=== PATIENT | female | born 1995 | race Caucasian/White ===

== ENCOUNTER 2019-12-04 14:59 | Outpatient (CLI) | payer OTHER, SELFPAY ==
[2019-12-04 15:27] LABS: HGB 14.7 g/dL (11.2-15.7); MCH 29.4 pg (27.0-33.0); MCHC 32.7 % (32.0-36.0); MPV 14.5 fL (8.0-11.0); Platelet Count 120 10^3/uL (130-400); RDW 11.8 % (11.7-14.6); RDW-SD 38.5 fL; WBC 7.64 10^3/uL (4.4-10.8)
[2019-12-04 15:47] LABS: Anion Gap 11.1 mmol/L (3-11); BUN 9 mg/dL (7-18); CO2 22.9 mmol/L (21.0-32.0); Calcium 9.3 mg/dL (8.5-10.1); Chloride 106 mmol/L (98-107); Glucose 106 mg/dL (74-106); Magnesium 1.9 mg/dL (1.8-2.4); Potassium 3.5 mmol/L (3.5-5.1); Sodium 140 mmol/L (136-145); TSH (W/Ref FT4) 1.03 uIU/mL (0.36-3.74)
[2019-12-04 16:26] LABS: D-Dimer 237 ng/mlFEU (<500)
== END 2019-12-04 15:19 ==
PROVIDERS: PCP Family Medicine; Visit Provider Family Medicine
DX: R00.2 Palpitations (principal)
CPT/HCPCS: 36415; 80048; 85027; 83735; 84443; 85379

== ENCOUNTER 2019-12-16 03:47 | Outpatient (CLI) | payer OTHER, SELFPAY | END 2019-12-16 04:07 | PROVIDERS: PCP Family Medicine; Visit Provider Family Medicine | DX: R00.2 Palpitations (principal) | CPT/HCPCS: 93225 ==

== ENCOUNTER 2019-12-19 09:32 | Outpatient (CLI) | payer OTHER, SELFPAY ==
--- NOTE | 2019-12-19 11:27 | W.HOLTRPT ---
Date of service: 12/19/19 Time of Service: 11:27 Holter Monitor Report Referring Provider:: marisol tineo Indications:: palpitations Holter Monitor Note: This is a 48-hour Holter monitor reportedly performed for indications of palpitations The rhythm throughout was sinus. Average heart rate was 86. Minimum heart rate was 62 and maximum 138 There were no significant atrial or ventricular dysrhythmias Patient symptoms of palpitations corresponded to sinus tachycardia, rate 111 to 124 bpm
== END 2019-12-19 09:52 ==
PROVIDERS: PCP Family Medicine; Visit Provider Family Medicine
DX: R00.2 Palpitations (principal)
CPT/HCPCS: 93227; 93226

== ENCOUNTER 2020-01-15 13:38 | Outpatient (CLI) | payer OTHER, SELFPAY ==
--- NOTE | 2020-01-15 13:45 | RT.EKG_ITS ---
APPROVED REPORT Exam: Resting ECG Patient Location: O HR:87 bpm ECG Measurements Heart Rate 87 AXIS AZ 111 P 34 QRSd 75 QRS 57 QT 350 T 37 QTc 421 Conclusion Sinus rhythm...normal P axis, V-rate 60- 99
== END 2020-01-15 13:58 ==
PROVIDERS: PCP Family Medicine; Referring Provider Family Medicine; Visit Provider Internal Medicine Cardiovascular Disease
DX: R00.2 Palpitations (principal)
CPT/HCPCS: 93010

== ENCOUNTER → 2020-01-15 13:38 | Outpatient (BNVA) | payer OTHER, SELFPAY | PROVIDERS: PCP Family Medicine; Referring Provider Family Medicine; Visit Provider Internal Medicine Cardiovascular Disease | DX: R00.2 Palpitations (principal) | CPT/HCPCS: 99204 ==

== ENCOUNTER 2020-03-02 00:34 | Outpatient (CLI) | payer OTHER, SELFPAY ==
--- NOTE | 2020-03-02 07:27 | DI.US_ITS ---
APPROVED REPORT EXAM: Comprehensive 2D, Doppler, and color-flow Echocardiogram Patient Location: Out-Patient [employer] Operator: Megan Evans RDCS (AE) Indications: Tachycardia, Palpitations Other Information Study Quality: Good Conclusion Normal left ventricular wall thickness, chamber size and systolic function. Estimated ejection fract ion is 60 to 65%. There are no segmental wall motion abnormalities Normal right ventricular size and systolic function Both atria are normal in size There are no structural valvular abnormalities There are no hemodynamically significant valvular abnormalities Wall motion Left Ventricle The left ventricle is normal size. The left ventricular systolic function is normal. The left ventric ular ejection fraction is within the normal range. There is normal left ventricular wall thickness. T here is normal LV segmental wall motion. There is no ventricular septal defect visualized. LVEF is 60 -65%. Right Ventricle The right ventricle is normal size. The right ventricular systolic function is normal. The RVSP is 14 .4 mmHg. Atria The left atrium size is normal. The right atrium size is normal. The interatrial septum is intact wit h no evidence for an atrial septal defect. Aortic Valve The aortic valve is normal in structure. Aortic valve is trileaflet. There is no aortic valvular sten osis. No aortic regurgitation is present. Mitral Valve The mitral valve is normal in structure. No evidence of mitral valve stenosis. Trace mitral regurgita tion. Tricuspid Valve The tricuspid valve is normal in structure. There is no tricuspid valve stenosis. Trace tricuspid reg urgitation. Pulmonic Valve The pulmonary valve is normal in structure. There is no pulmonic valvular stenosis. There is trivial pulmonic valvular regurgitation. Great Vessels The aortic root is normal in size. The ascending aorta is normal in size. Aortic arch is normal in ca liber. IVC is normal in size and collapses >50% with inspiration. Pericardium There is no pericardial effusion. 2D Dimensions IVSD d PLAX 0.68 cm F: 0.6-1.0 LV Vol A2C d MOD 91.9 mL LVPW d PLAX 0.70 cm F: 0.6 - 1.0 LV Vol A4C d MOD 82.5 mL LVID d PLAX 4.76 cm F: 3.8 - 5.2 LA vol/ BSA A2C s A-L 17.4 mL/m2 LVDs 3.15 cm F: 2.2 - 3.5 LA vol/ BSA A4C s A-L 15.5 mL/m2 Ao Root d 2.42 cm F: 2.7 - 3.3 LA Vol/ BSA Biplane s A-L 17.9 mL/m2 RA Area A4C 9.20 cm2 LA Area A4C s MOD 12.52 cm2 RA Vol/ BSA A4C s A-L 11.1 mL/m2 LA Area A2C s MOD 12.19 cm2 Ao Asc Diam d 2.75 cm F: 2.3 - 3.1 LV EF A4C MOD 57.8 % LV EF Teichholz 62.0 % LV EF A2C MOD 59.0 % LVEF (Stahl's) 60.02 % F: 54 - 74 LV EF Biplane MOD 60.0 % LV Volume 72.81 mL F: 46 - 106 SV 56.06 mL LV Volume Index 40.67 mL/m2 F: 29 - 61 SV Index 31.33 mL/m2 LV Vol Biplane MOD 93.4 mL FS 33.35 % LV Diastology MV E' medial 0.145 (>0.07 m/s) E/A Ratio 2.1 LV E/e MED 6.40 (<14) MV E Vmax 0.93 (0.4-1.3 m/s) MV E' lateral 0.171 (>0.1 m/s) MV A Vmax 0.45 (0.4-1.3 m/s) LV E/e LAT 5.40 (<14) MV E/A Ratio 1.90 MV E/E' medial 6.40 MV E/E' lateral 5.44 Aortic Valve LVOT Area 2.97 cm2 AoV Area Vmax 2.31 cm2 LVOT Vmax 1.03 m/s AoV Area/ BSA (Vmax) 1.29 cm2/m2 LVOT Mean Lenny. 0.65 m/s CHELSY Mean Lenny. 2.11 cm2 LVOT Peak Grad 4.3 mmHg CHELSY Mean Lenny. Index 1.18 cm2/m2 LVOT Mean Grad 2.1 mmHg LVOT VTI 0.210 m LVOT Diam s 1.90 cm AoV Vmax 1.32 m/s Velocity Ratio 0.78 AoV Mean Lenny. 0.91 m/s AoV Peak Grad 7.0 mmHg LVOT SV 62.36 mL AoV Mean Grad 3.7 mmHg AoV VTI 0.247 m AoV Area VTI 2.52 cm2 AoV Area/ BSA (VTI) 1.41 cm/m2 Mitral Valve MV DT 186 (160-240 msec) MV PHT 54 msec MV Area PHT 4.07 cm2 Pulmonary Valve PV Vmax 1.07 (0.5-1.5 m/s) RVOT Peak Gr. 1.50 mmHg PV Peak Grad 4.6 mmHg RVOT Mean Gr. 0.85 mmHg PV Mean Grad 2.3 mmHg RVOT VTI 0.137 m PV VTI 0.214 m RVOT Vmax 0.61 m/s Tricuspid Valve TR Peak Grad 11.4 mmHg TR Vmax 1.69 m/s RA Pressure 3.00 mmHg RVSP (TR) 14.4 mmHg
== END 2020-03-02 00:54 ==
PROVIDERS: PCP Family Medicine; Visit Provider Internal Medicine Cardiovascular Disease
DX: R00.2 Palpitations (principal); R00.0 Tachycardia, unspecified
CPT/HCPCS: 93306

== ENCOUNTER 2020-03-22 14:54 | Emergency (ER) | payer OTHER, SELFPAY ==
[2020-03-22 14:58] VITALS: BP 134/80; PULSE 97; RESP 14; TEMP 36.5; O2SAT 100
[2020-03-22 15:12] LABS: Bilirubin Small (Negative); Blood Trace-intact (Negative); Glucose Negative (Negative); Ketones Trace mg/dL (Negative); Leukocyte Esterase Negative (Negative); Nitrite Negative (Negative); Specific Gravity >= 1.030 (1.005-1.025)
--- NOTE | 2020-03-22 15:12 | ED.GENADUL_ITS ---
Discharge Plan Disposition Patient Disposition: HOME Condition: Improving Discharge Details Clinical Impression: UTI (urinary tract infection) Primary Care Provider: Rosendo Keith ED Provider: Dex Chambers Home Meds and New Rx's Prescriptions: New phenazopyridine [Pyridium] 100 mg tablet 100 mg PO TID 2 Days Qty: 6 RF: 0 cephalexin 500 mg capsule 500 mg PO TID 7 Days Qty: 21 RF: 0 Continued aripiprazole [Abilify] 15 mg tablet 15 mg PO DAILY RF: 0 lorazepam 1 mg tablet 1 mg PO DAILY PRNRF: 0 medroxyprogesterone [Depo-Provera] 150 mg/mL suspension 150 mg IM Q12W Qty: 1 RF: 3 propranolol [Inderal LA] 60 mg capsule,extended release 24 hr 60 mg PO DAILY RF: 0 Medical Decision Making Pleasant 24-year-old female presents with hours of urinary frequency, urgency, mild low abdomen/pelvis and back pain. Her vital signs are stable, her exam reveals suprapubic tenderness and mild flank tenderness. Consistent with urinary tract infection; cystitis versus pyelonephritis. Given acetaminophen and Pyridium. Her urinalysis is not convincing for UTI, but she does have lower abdominal tenderness and concerning for developing peritonitis. IV placed, labs is and repeat UA obtained. Labs: White blood cell count 8, hematocrit 41, platelets 116. Chemistries reassuring, LFTs unremarkable, lipase negative. Repeat urinalysis with positive nitrites and consistent with acute UTI. CT scan of the abdomen pelvis is without acute findings. Patient improving with parenteral fluids and medications. She is given a dose of ceftriaxone I will place her on Keflex and Pyridium. She is stable and improved, appropriate for discharge to home. HPI General Mode of arrival: ambulatory . Date/Time Provider Initiated Documentation: 03/22/20 14:58 . Limitations to Documentation: no limitations . Information obtained by: patient . History of Present Illness 24 year old F presents to the emergency department with the chief complaint of Urinary urgency, lower abdomen and back discomfort, described as moderate, Quality is described as dull, and is localized to the back, abdomen and pelvis. Patient reports no radiation. Patient started experiencing this hour(s) and it has been constant. No relieving factors improve symptom(s), No exacerbating factors reported . Patient notes loss of appetite and malaise; denies fever/chills and nausea/vomiting. Patient did receive the following treatments prior to arrival, none Related Data Home Medications Medication Instructions Recorded Confirmed medroxyprogesterone 150 mg/mL 150 mg IM Q12W #1 ml 09/26/19 01/15/20 intramuscular suspension aripiprazole 15 mg tablet 15 mg PO DAILY 11/25/19 01/15/20 lorazepam 1 mg tablet 1 mg PO DAILY PRN 11/25/19 01/15/20 propranolol 60 mg capsule,24 60 mg PO DAILY 12/17/19 01/15/20 hr,extended release cephalexin 500 mg PO TID 7 Days #21 cap 03/22/20 phenazopyridine [Pyridium] 100 mg PO TID 2 Days #6 tab 03/22/20 Previous Rx's Medication Instructions Recorded medroxyprogesterone 150 mg/mL 150 mg IM Q12W #1 ml 09/26/19 intramuscular suspension cephalexin 500 mg PO TID 7 Days #21 cap 03/22/20 phenazopyridine [Pyridium] 100 mg PO TID 2 Days #6 tab 03/22/20 Allergies Allergy/AdvReac Type Severity Reaction Status Date / Time No Known Allergies Allergy Verified 02/17/20 12:48 General Stated Complaint: Urinary ELFEGO: 3 Review of Systems Narrative: No recent travel, no respiratory symptoms. No vaginal bleeding or discharge. No change in sexual partners. 6 systems reviewed and otherwise negative. PFSH Surgical History H/O wisdom tooth extraction Family History Mother Depression Thyroid disorder Maternal Grandmother Bipolar 1 disorder Social History Smoking/Tobacco Use Status: Never Smoking risk assessment performed?: Yes Alcohol Intake: current Alcohol Intake frequency: holidays/special occasions only Drug use: Never Substance use type: does not use Do you feel safe at home: Yes Do you feel safe in your relationship?: Yes Female Reproductive History Menstrual control method: progesterone injection History History 0 Para Hx # Term Pregnancies Multiple births Hx # Pregnancies Ectopic pregnancies AB induced Hx Number of Living Children AB spontaneous Exam Narrative Exam Narrative: GEN: awake, alert, oriented 3. Pleasant, well groomed, interactive. HEAD: Normocephalic, atraumatic ENT: Mucous membranes moist, External ear exam unremarkable EYES: PERRL, EOMI NECK: Full ROM, no JONATHAN, no menigismus CHEST/RESP: Nontender, clear to auscultation bilateral, no wheeze/rhonchi/rales CARDIOVASCULAR: RRR, no murmur, rub alicia. 2+ Rad pulse bilateral ABDOMEN: Soft, suprapubic tenderness, no mass. +Bowel sounds. Mild bilateral flank tenderness to percussion EXT: Full ROM, no edema, no rash Neuro: Grossly normal neurologic exam, conversant, interactive. Psych: Speech fluent, thoughts congruent, affect normal Course Vital Signs Vital signs: Vital Signs Temperature 36.5 C 03/22/20 14:58 Pulse 97 H 03/22/20 14:58 Respiratory Rate 14 03/22/20 14:58 Blood Pressure 134/80 03/22/20 14:58 Pulse Oximetry 100 03/22/20 14:58 Temperature 36.5 C 03/22/20 14:58 Temperature Source Skin 03/22/20 14:58 Pulse 97 H 03/22/20 14:58 Respiratory Rate 14 03/22/20 14:58 Blood Pressure 134/80 03/22/20 14:58 Blood Pressure Position Sitting 03/22/20 14:58 Pulse Oximetry 100 03/22/20 14:58 Oxygen Delivery Method Room Air 03/22/20 14:58 Oxygen Flow Rate 0 03/22/20 14:58 Pain Level 7 03/22/20 14:58 Lab/Test Results Lab/Test Results: POC- Test(urine) Negative
[2020-03-22 15:13] LABS: Clarity Sl Cloudy (Clear)
--- NOTE | 2020-03-22 15:15 | DI.CT_ITS ---
EXAM: CT ABDOMEN PELVIS W INDICATION: Lower abd/pelvic pain. COMPARISON: No exams were available for comparison TECHNIQUE: FINDINGS: CT examination of the abdomen and pelvis was performed with a bolus infusion of 100 cc of Omnipaque 3 50. Images obtained through the lung bases are unremarkable. The liver is unremarkable in appearance. Gallbladder and bile ducts are CT normal. Pancreas appears normal. Spleen is unremarkable in appearance. Adrenals appear normal. The kidneys are unremarkable with no evidence of hydronephrosis, nephrolithiasis, or renal mass.. Ur inary bladder unremarkable. Abdominal aorta is of normal diameter and no major vascular abnormality is seen. No abdominal wall hernia. No abdominal or pelvic adenopathy. FOUNDRY MANAGER structures appear intact. Appendix is normal. No evidence of diverticulitis or bowel obstruction. IMPRESSION: Negative CT examination of the abdomen and pelvis. No evidence of appendicitis. RADIATION DOSE DELIVERED: 725.98mGy.cm Total DLP 725.98mGy.cm Total DLP
[2020-03-22] MEDS: Phenazopyridine 100 MG TAB PO (15:17)
[2020-03-22] MEDS: Acetaminophen 500 MG TAB 1000 MG PO (15:17)
[2020-03-22 15:22] LABS: Bacteria Few HPF (Negative); Crystals Negative HPF (Negative); Epithelial Cells Many HPF (Negative)
[2020-03-22 15:23] LABS: C & S Indicated? No/Sq. Contamination; Mucus Moderate (Negative)
[2020-03-22 16:02] LABS: Abs Immature Grans 0.02 10^3/uL (0.0-0.06); Absolute Basophil Count 0.03 10^3/uL (0.0-0.2); Absolute Eosinophil Count 0.11 10^3/uL (0.0-0.7); Absolute Lymphocyte Count 2.74 10^3/uL (1.2-3.4); Absolute Monocyte Count 0.58 10^3/uL (0.1-0.8); Absolute Neutrophil Count 4.68 10^3/uL (1.2-6.7); Basophils % 0.4; Eosinophils % 1.3; HCT 41.5 % (36.0-46.0); HGB 13.9 g/dL (11.2-15.7); Immature Grans % 0.2; Lymphocytes % 33.6; MCH 30.1 pg (27.0-33.0); MCHC 33.5 % (32.0-36.0); MCV 89.8 fL (80-95); MPV 14.5 fL (8.0-11.0); Monocytes % 7.1; Neutrophils % 57.4; Nucleated RBC 0 %; Platelet Count 116 10^3/uL (130-400); RBC 4.62 10^6/uL (3.93-5.22); RDW 12.1 % (11.7-14.6); RDW-SD 39.4 fL; WBC 8.16 10^3/uL (4.4-10.8)
[2020-03-22 16:14] LABS: ALT 20 U/L (14-59); AST 10 U/L (15-37); Albumin 4.2 g/dL (3.4-5.0); Alkaline Phosphatase 67 U/L (46-116); Anion Gap 9.2 mmol/L (3-11); BUN 12 mg/dL (7-18); Bilirubin, Total 0.3 mg/dL (0.2-1.0); CO2 23.8 mmol/L (21.0-32.0); CREATININE 0.84 mg/dL (0.55-1.02); Calcium 8.7 mg/dL (8.5-10.1); Chloride 104 mmol/L (98-107); Glucose 95 mg/dL (74-106); Lipase 53 U/L (73-393); Potassium 3.7 mmol/L (3.5-5.1); Sodium 137 mmol/L (136-145); Total Protein 7.3 g/dL (6.4-8.2)
[2020-03-22] MEDS: Omnipaque 350 MG/ML 100 ML BTL IJ (16:20)
[2020-03-22] MEDS: Normal Saline 1,000 ML 1000 ML IV (16:21)
[2020-03-22] MEDS: Ketorolac 15 MG/ML VIAL IVP (16:21)
--- NOTE | 2020-03-22 16:30 | DI.VRAD_ITS ---
PROCEDURE INFORMATION: Exam: CT Abdomen And Pelvis With Contrast Exam date and time: 03/22/2020 3:29 PM Age: 24 years old Clinical indication: Abdominal pain; Localized; Patient HX: Lower abd/pelvic pain TECHNIQUE: Imaging protocol: Computed tomography of the abdomen and pelvis with intravenous contrast. COMPARISON: No relevant prior studies available. FINDINGS: Limitations: None. Liver: Normal. Gallbladder and bile ducts: Normal. Pancreas: Normal. Spleen: Normal. Adrenal glands: Normal. Kidneys and ureters: Normal. Intestine: Normal colon. Stomach and bowel: Normal stomach and small bowel. Appendix: Normal appendix. Intraperitoneal space: No ascites, pneumoperitoneum or peritoneal lesion. Vasculature: Normal. Lymph nodes: None enlarged or otherwise suspicious. Urinary bladder: Normal. Reproductive: Normal uterus and ovaries. Bones/joints: No acute fracture or suspicious osseous lesion. Soft tissues: No mass or abdominal hernia. IMPRESSION: Normal. Dictated and Authenticated by: Jeremiah Gorman MD. Ordering:CRISTIAN Kowalski MD
[2020-03-22 16:37] LABS: Bilirubin Negative (Negative); Blood Negative (Negative); Clarity Clear (Clear); Glucose Negative (Negative); Ketones Negative (Negative); Leukocyte Esterase Negative (Negative); Urobilinogen 0.2 EU/dL (Up TO 0.2); pH 6.5 (5-8)
[2020-03-22 16:49] LABS: Casts Negative LPF (Negative); Crystals Negative HPF (Negative); Epithelial Cells Few HPF (Negative); Mucus Negative (Negative); RBC 0-2 HPF (0-2)
[2020-03-22 16:56] LABS: Bacteria Negative HPF (Negative); C & S Indicated? No
[2020-03-22] MEDS: cefTRIAXone 1 GM/50 ML BAG IVPB (17:10)
== END 2020-03-22 17:34 | disposition home or self-care (01) ==
PROVIDERS: Emergency Provider Emergency Medicine; PCP Family Medicine
DX: N30.00 Acute cystitis without hematuria (principal); Z87.440 Personal history of urinary (tract) infections
CPT/HCPCS: 36415; 80053; 81025; 83690; 96361; 96365; 96375; 99285; 74177; 81003; 81015; 85025; 99284; J0696; J1885; J3490

== ENCOUNTER → 2020-04-09 12:19 | Outpatient (BNVA) | payer OTHER, SELFPAY | PROVIDERS: PCP Family Medicine; Referring Provider Family Medicine; Visit Provider Internal Medicine Cardiovascular Disease | DX: F31.89 Other bipolar disorder (principal); R00.2 Palpitations | CPT/HCPCS: 99214; 99442 ==

== ENCOUNTER 2020-05-05 15:57 | Outpatient (REF) | payer OTHER, SELFPAY ==
[2020-05-07 15:28] LABS: COVID-19 RT-PCR Result NEGATIVE (Negative)
== END 2020-05-05 16:17 ==
LOC: NCHCN 15:57
PROVIDERS: PCP Family Medicine; Visit Provider Physician Assistant
DX: Z20.822 Contact with and (suspected) exposure to COVID-19 (principal)
CPT/HCPCS: U0003

== ENCOUNTER → 2020-05-21 08:58 | Outpatient (BNVA) | payer OTHER, SELFPAY | PROVIDERS: PCP Family Medicine; Referring Provider Family Medicine; Visit Provider Internal Medicine Cardiovascular Disease | DX: R00.2 Palpitations (principal) | CPT/HCPCS: 99442; 99213 ==

== ENCOUNTER 2021-01-18 09:26 | Outpatient (REF) | payer OTHER, SELFPAY ==
--- NOTE | 2021-01-18 09:00 | PAPFT_PTH ---
PATIENT: Екатерина Luna LOC: [facility] U#:[id number] AGE/SX: 25/F ROOM: RE01/18/[address]: KIM Hinton : 1995 BED: DIS: 01/18/2021 SPEC #: [id number] RECD: 01/18/21 12:51 STATUS: RYLEY REQ #: [id number] GABRIEL: 01/18/21 09:[address]: Ranjana Andino DEPT: [facility] Cytology RECD BY: Radha Earl ENTERED: 01/18/21 12:51 SP TYPE: PAPFT OTHR DR: Rosendo Keith Tissues: 1 - CX/ENDOCX FOR PAP SMEARS Procedures: PAP THIN PREP/[facility] Screening Comments: [id number]
== END 2021-01-18 09:27 | disposition home or self-care (01) ==
LOC: LBN 09:26
PROVIDERS: PCP Family Medicine; Visit Provider Nurse Practitioner Family
DX: Z12.4 Encounter for screening for malignant neoplasm of cervix (principal); R87.610 Atypical squamous cells of undetermined significance on cytologic smear of cervix (ASC-US)
CPT/HCPCS: 88142

== ENCOUNTER 2021-02-22 10:05 | Outpatient (REF) | payer OTHER, SELFPAY ==
[2021-02-22 15:15] LABS: HCT 43.9 % (36.0-46.0); HGB 14.7 g/dL (11.2-15.7); MCH 29.5 pg (27.0-33.0); MCHC 33.5 % (32.0-36.0); Platelet Count 127 10^3/uL (130-400); RBC 4.99 10^6/uL (3.93-5.22); RDW 11.9 % (11.7-14.6); RDW-SD 38.2 fL; WBC 6.84 10^3/uL (4.4-10.8)
[2021-02-22 15:35] LABS: ALT 23 U/L (14-59); AST 12 U/L (15-37); Albumin 4.3 g/dL (3.4-5.0); Alkaline Phosphatase 74 U/L (46-116); Anion Gap 10.5 mmol/L (3-11); BUN 11 mg/dL (7-18); Bilirubin, Total 0.4 mg/dL (0.2-1.0); CO2 25.5 mmol/L (21.0-32.0); CREATININE 0.9 mg/dL (0.55-1.02); Calcium 9.3 mg/dL (8.5-10.1); Chloride 107 mmol/L (98-107); FREE T4 1.09 ng/dL (0.76-1.46); Glucose 110 mg/dL (74-106); Potassium 4.6 mmol/L (3.5-5.1); Sodium 143 mmol/L (136-145); TSH 2.55 uIU/mL (0.36-3.74); Total Protein 7.4 g/dL (6.4-8.2)
[2021-02-22 16:05] LABS: Ferritin 32 ng/mL (8-252)
== END 2021-02-22 10:06 | disposition home or self-care (01) ==
LOC: NCHCN 10:05
PROVIDERS: PCP Family Medicine; Visit Provider Physician Assistant
DX: R53.83 Other fatigue (principal)
CPT/HCPCS: 80053; 85027; 82728; 84439; 84443

== ENCOUNTER 2021-05-20 12:53 | Outpatient (CLI) | payer OTHER, SELFPAY ==
--- NOTE | 2021-05-20 | DI.RAD_ITS ---
Exam(s) XR CHEST 2V PA LATERAL EXAM: XR CHEST 2V PA LATERAL CLINICAL HISTORY: COVID 19, U07.1, PERSISTENT COUGH, FEVER TECHNIQUE: 2D digital imaging was performed of the chest. Two images were obtained. PA and lateral views were obtained. COMPARISON: No exams were available for comparison FINDINGS: MEDIASTINUM: Normal. HEART: Normal. PULMONARY VASCULATURE: Normal. LUNGS: Clear. PLEURAL SPACE: No pleural effusion or pneumothorax. BONE:Within normal limits for the patient's age. OTHER FINDINGS:Normal. IMPRESSION: No acute pulmonary findings. DATA REPOSITORY: RADIATION DOSE DELIVERED:
== END 2021-05-20 13:13 ==
PROVIDERS: PCP Family Medicine; Visit Provider Physician Assistant
DX: U07.1 COVID-19 (principal); R05.8 Other specified cough; R50.9 Fever, unspecified
CPT/HCPCS: 71046

== ENCOUNTER 2021-05-20 16:17 | Outpatient (REF) | payer OTHER, SELFPAY ==
[2021-05-20 15:29] LABS: HCT 41.5 % (36.0-46.0); HGB 13.6 g/dL (11.2-15.7); MCH 29.4 pg (27.0-33.0); MCHC 32.8 % (32.0-36.0); MCV 89.8 fL (80-95); Platelet Count 132 10^3/uL (130-400); RBC 4.62 10^6/uL (3.93-5.22); RDW 12.2 % (11.7-14.6); RDW-SD 39.7 fL
[2021-05-20 16:21] LABS: D-Dimer 291 ng/mlFEU (<500)
== END 2021-05-20 16:18 | disposition home or self-care (01) ==
LOC: NCHCN 16:17
PROVIDERS: PCP Family Medicine; Visit Provider Physician Assistant
DX: U07.1 COVID-19 (principal)
CPT/HCPCS: 85027; 85379

== ENCOUNTER 2021-11-02 03:20 | Outpatient (CLI) | payer OTHER, SELFPAY | END 2021-11-02 03:21 | disposition home or self-care (01) | LOC: LBO 03:20 | PROVIDERS: PCP Family Medicine; Visit Provider Nurse Practitioner Women's Health ==

== ENCOUNTER 2021-11-09 01:34 | Outpatient (CLI) | payer OTHER, SELFPAY | END 2021-11-09 01:35 | disposition home or self-care (01) | LOC: LBO 01:35 | PROVIDERS: PCP Family Medicine; Visit Provider Nurse Practitioner Women's Health ==

== ENCOUNTER 2023-02-02 19:36 | Outpatient (REF) | payer BC, SELFPAY ==
[2023-02-02 17:43] LABS: HCT 40.9 % (36.0-46.0); HGB 13.6 g/dL (11.2-15.7); MCH 28.9 pg (27.0-33.0); MCHC 33.3 % (32.0-36.0); MCV 87 fL (80-95); Platelet Count 128 10^3/uL (130-400); RBC 4.71 10^6/uL (3.93-5.22); RDW 12.5 % (11.7-14.6); RDW-SD 39.4 fL; WBC 7.64 10^3/uL (4.4-10.8)
[2023-02-02 17:53] LABS: ALT 137 U/L (14-59); AST 65 U/L (15-37); Alkaline Phosphatase 76 U/L (46-116); Anion Gap 11.7 mmol/L (3-11); BUN 9 mg/dL (7-18); Bilirubin, Total 0.5 mg/dL (0.2-1.0); CO2 24.3 mmol/L (21.0-32.0); CREATININE 0.9 mg/dL (0.55-1.02); Calcium 9.7 mg/dL (8.5-10.1); Chloride 103 mmol/L (98-107); Estimated GFR 90.42 (mL/min/1.73m2); Glucose 97 mg/dL (74-106); Lipase 19 U/L (16-77); Potassium 4.1 mmol/L (3.5-5.1); Sodium 139 mmol/L (136-145); Total Protein 7.4 g/dL (6.4-8.2)
== END 2023-02-02 19:37 | disposition home or self-care (01) ==
LOC: NCHCN 19:36
PROVIDERS: PCP Family Medicine; Visit Provider Physician Assistant
DX: R10.9 Unspecified abdominal pain (principal)
CPT/HCPCS: 80053; 83690; 85027

== ENCOUNTER 2023-02-13 16:40 | Outpatient (REF) | payer BC, SELFPAY ==
[2023-02-13 20:24] LABS: Abs Immature Grans 0.03 10^3/uL (0.0-0.06); Absolute Basophil Count 0.02 10^3/uL (0.0-0.2); Absolute Eosinophil Count 0.23 10^3/uL (0.0-0.7); Absolute Lymphocyte Count 2.72 10^3/uL (1.2-3.4); Absolute Monocyte Count 0.56 10^3/uL (0.1-0.8); Absolute Neutrophil Count 4.92 10^3/uL (1.2-6.7); Basophils % 0.2; Eosinophils % 2.7; HCT 41.7 % (36.0-46.0); HGB 13.7 g/dL (11.2-15.7); Immature Grans % 0.4; Lymphocytes % 32.1; MCH 28.9 pg (27.0-33.0); MCHC 32.9 % (32.0-36.0); MCV 88 fL (80-95); Monocytes % 6.6; Platelet Count 148 10^3/uL (130-400); RBC 4.74 10^6/uL (3.93-5.22); RDW 12.6 % (11.7-14.6); RDW-SD 40.5 fL; WBC 8.48 10^3/uL (4.4-10.8)
[2023-02-13 20:31] LABS: ALT 90 U/L (14-59); AST 40 U/L (15-37); Alkaline Phosphatase 81 U/L (46-116); Bilirubin, Direct 0.1 mg/dL (0.0-0.2); Bilirubin, Total 0.4 mg/dL (0.2-1.0); Total Protein 7.4 g/dL (6.4-8.2)
== END 2023-02-13 16:41 | disposition home or self-care (01) ==
LOC: NCHCN 16:40
PROVIDERS: PCP Family Medicine; Visit Provider Physician Assistant
DX: D69.6 Thrombocytopenia, unspecified (principal)
CPT/HCPCS: 80076; 85025

== ENCOUNTER 2023-02-14 13:13 | Outpatient (REF) | payer BC, SELFPAY ==
[2023-02-16 08:24] LABS: Hepatitis C Ab w Rflx HCV PCR Negative (Negative)
== END 2023-02-14 13:14 | disposition home or self-care (01) ==
LOC: NCHCN 13:13
PROVIDERS: PCP Family Medicine; Visit Provider Physician Assistant
DX: D69.6 Thrombocytopenia, unspecified (principal)
CPT/HCPCS: 86803

== ENCOUNTER 2023-03-02 16:59 | Outpatient (REF) | payer BC, SELFPAY ==
--- NOTE | 2023-03-02 14:45 | PAPFT_PTH ---
PATIENT: Екатерина Luna LOC: [facility] U#:[id number] AGE/SX: 27/F ROOM: RE03/02/[address]: Cherri Aguiar DO : 1995 BED: DIS: 03/02/2023 SPEC #: [id number] RECD: 03/02/23 17:46 STATUS: SOUShilpa REQ #: [id number] GABRIEL: 03/02/23 14:[address]: Cherir Aguiar [facility]PT[facility] Cytology RECD BY: Radha Earl ENTERED: 03/02/23 17:46 SP TYPE: PAPFT OTHR DR: Rosendo Keith Tissues: 1 - CX/ENDOCX FOR PAP SMEARS Procedures: PAP THIN PREP/[facility] Screening HPV DNA PROBE Comments: [id number] (CHLAMYDIA/GC)
[2023-03-05 14:48] LABS: Chlamydia Result Negative (Negative); GC Result Negative (Negative)
== END 2023-03-02 17:00 | disposition home or self-care (01) ==
LOC: LBN 16:59
PROVIDERS: PCP Family Medicine; Visit Provider Obstetrics & Gynecology
DX: Z11.3 Encounter for screening for infections with a predominantly sexual mode of transmission (principal); Z12.4 Encounter for screening for malignant neoplasm of cervix; Z11.51 Encounter for screening for human papillomavirus (HPV)
CPT/HCPCS: 87491; 87591; 88142; 87624

== ENCOUNTER 2023-07-07 13:16 | Emergency (ER) | payer BC, SELFPAY ==
[2023-07-07] VITALS (20 sets, daily range): BP systolic 122–158; BP diastolic 66–87; PULSE 75–96; RESP 16; TEMP 36.6; O2SAT 99–100
[2023-07-07 13:59] LABS: Abs Immature Grans 0.01 10^3/uL (0.0-0.06); Absolute Basophil Count 0.02 10^3/uL (0.0-0.2); Absolute Eosinophil Count 0.12 10^3/uL (0.0-0.7); Absolute Lymphocyte Count 2.32 10^3/uL (1.2-3.4); Absolute Monocyte Count 0.54 10^3/uL (0.1-0.8); Absolute Neutrophil Count 3.88 10^3/uL (1.2-6.7); Basophils % 0.3; Eosinophils % 1.7; HCT 45.8 % (36.0-46.0); HGB 15.3 g/dL (11.2-15.7); Immature Grans % 0.1; Lymphocytes % 33.7; MCH 29.6 pg (27.0-33.0); MCHC 33.4 % (32.0-36.0); MCV 89 fL (80-95); MPV 14.4 fL (8.0-11.0); Monocytes % 7.8; Neutrophils % 56.4; Platelet Count 120 10^3/uL (130-400); RBC 5.17 10^6/uL (3.93-5.22); RDW 12.1 % (11.7-14.6); RDW-SD 39.8 fL; WBC 6.89 10^3/uL (4.4-10.8)
[2023-07-07] MEDS: Normal Saline 1,000 ML 1000 ML IV (14:00)
--- NOTE | 2023-07-07 14:00 | DI.CT_ITS ---
Exam(s) CT ABDOMEN PELVIS W EXAM: CT ABDOMEN PELVIS W CLINICAL HISTORY: LLQ pain. TECHNIQUE: Imaging Protocol: Axial computed tomography images with coronal and sagittal reformatted images were created and reviewed CONTRAST MATERIAL: Intravenous: Omnipaque-350 100cc Oral: None COMPARISON: CT CT ABDOMEN PELVIS W from 03/22/2020 FINDINGS: VISUALIZED LUNG BASES: No nodules nor pleural effusions evident. ABDOMEN: There is no ascites. LIVER: There are no focal hepatic lesions evident. No dilated intrahepatic ducts. GALLBLADDER/BILIARY: No obvious gallbladder pathology. CBD is not dilated. PANCREAS: No evidence of pancreatic mass nor dilatation of the pancreatic duct. SPLEEN: Spleen is not enlarged. No obvious intrasplenic lesions. Splenic and portal veins are paten t. ADRENALS: There are no significant adrenal masses. KIDNEYS:No cysts evident. No solid renal masses. No calculi nor hydronephrosis.. ABDOMINAL AORTA: Abdominal aorta is not enlarged. LYMPH NODES:There is no retroperitoneal nor paraaortic adenopathy. ABDOMINAL WALL: No evidence of significant anterior abdominal wall nor inguinal hernia. GI: There is no evidence of bowel obstruction, free air, nor abscess. PELVIS: GI: No evidence of appendicitis.There is no evidence of diverticular disease in the colon. However, the descending-left colon appears collapsed in similar fashion to February 2020 with some mild circum ferential wall thickening which is possibly exaggerated because of lack of oral contrast within the l umen. Nevertheless, can not exclude an element of colitis here. This does not extend all the way do wn to the rectum. LYMPH NODES: There is no intrapelvic nor inguinal adenopathy. REPRODUCTIVE: Uterus is anteverted and appears unremarkable. Ovaries unremarkable. Follicular cyst in the right ovary noted measuring 1 cm. There are no extraovarian adnexal masses. No free fluid in the pelvis. URINARY BLADDER: No calculi nor obvious masses evident OSSEOUS: No fractures and no significant osseous lesions. IMPRESSION: 1. Subtle circumferential thickening of the wall of the left side of the colon from the splenic flexu re down to the upper sigmoid, unchanged from 03/22/2020. This may just be due to lack of enteric int raluminal contrast but correlation with any clinical findings of colitis recommended. Consider colon oscopy to rule out ulcerative colitis 2. No evidence of diverticular disease and no evidence of appendicitis. No bowel obstruction nor rosa e air. No abscess. Discussed by phone with ER provider. RADIATION DOSE DELIVERED: Total DLP DATA REPOSITORY: All CT scans at this facility are submitted to the National Radiology Data Registry (NRDR) Dose Index Registry (DIR) with the [employer] (ACR). RADIATION OPTIMIZATION: All CT scans at this facility use at least one of these dose optimization te chniques: automated exposure control; mA and/or kV adjustment per patient size (includes targeted exa ms where dose is matched to clinical indication); or iterative reconstruction.
[2023-07-07 14:02] LABS: Bilirubin Negative (Negative); Blood Negative (Negative); Clarity Clear (Clear); Glucose Negative (Negative); Ketones Negative (Negative); Leukocyte Esterase Trace (Negative); Nitrite Negative (Negative); Specific Gravity 1.015 (1.005-1.025); Urobilinogen 0.2 mg/dL (Up to 0.2); pH 6.5 (5-8)
[2023-07-07 14:08] LABS: Bacteria Rare HPF (Negative); Casts Negative LPF (Negative); Crystals Negative HPF (Negative); Epithelial Cells Many HPF (Negative); Mucus Negative (Negative); RBC Negative HPF (0-2); WBC 0-2 HPF (0-5)
[2023-07-07 14:09] LABS: C & S Indicated? No/Sq. Contamination
--- NOTE | 2023-07-07 14:12 | ED.GENADUL_ITS ---
Discharge Plan Disposition Patient Disposition: Home Discharge Details Clinical Impression: Abdominal pain Primary Care Provider: Rosendo Keith ED Provider: Willy Talbert Home Meds and New Rx's Prescriptions: No Action norethindrone (contraceptive) 0.35 mg tablet 0.35 mg PO DAILY Qty: 84 4RF Discharge Instructions Instructions: Abdominal Pain (ED) Additional Instructions: Please continue to use [id number] pain medication as discussed for control of discomfort. Stay well-hydrated and perform clear liquid diet for the next 24 to 48 hours and advance your diet as tolerated. Also consider a low inflammatory food diet as discussed Please follow-up with general surgery office for reassessment of your abdominal pain and consideration of further testing if not improving. Return to the emergency department immediately for any new or significant worsening of your symptoms. Referrals: [facility] [Provider Group] - 1 week (For reassessment and further investigation into your abdominal pain) Discharge Data Discharge Date/Time-TO BE ENTERED AT DEPARTURE: 07/07/23 16:08 HPI General Mode of arrival: ambulatory . Date/Time Provider Initiated Documentation: 07/07/23 13:24 . Limitations to Documentation: no limitations . Information obtained by: patient and RN notes reviewed . History of Present Illness 27 year old F presents to the emergency department with the chief complaint of Abdominal pain, described as moderate, Quality is described as aching, and is localized to the abdomen. Patient started experiencing this month(s) (1) and it has been constant. No relieving factors improve symptom(s), No exacerbating factors reported . Patient did receive the following treatments prior to arrival, none Related Data Home Medications Medication Instructions Recorded Confirmed norethindrone (contraceptive) 0.35 0.35 mg PO DAILY #84 tabs 03/02/23 07/07/23 mg tablet Previous Rx's Medication Instructions Recorded norethindrone (contraceptive) 0.35 0.35 mg PO DAILY #84 tabs 03/02/23 mg tablet Allergies Allergy/AdvReac Type Severity Reaction Status Date / Time [id number]-vfrm AdvReac Skin Rash Verified 07/07/23 13:24 [From Ajovy Syringe] General Stated Complaint: Abd Prob ELFEGO: 3 Review of Systems Constitutional Constitutional: Reports chills, Denies fever(s) and Denies poor appetite Cardiovascular Cardiovascular: Denies chest pain and Denies dyspnea Respiratory Respiratory: Denies cough and Denies dyspnea Gastrointestinal Gastrointestinal: Reports as per HPI, Reports abdominal pain, Denies melena, Denies change in bowel habits, Reports change in stool character, Denies constipation, Denies diarrhea, Denies nausea, Denies vomiting and Reports other (Dark stools) Genitourinary Genitourinary: Denies hematuria, Denies dysmenorrhea, Denies dysuria and Denies pelvic pain Musculoskeletal Musculoskeletal: Denies back pain Integumentary/Breasts Skin/Breast: Denies rash Exam Const General: cooperative Orientation: alert, awake and oriented x3 Resp Effort & Inspection: normal respiratory effort and able to speak in complete sentences Auscultation: clear to auscultation bilaterally Cardio Rate: regular rate Rhythm: regular rhythm Heart Sounds: S1 normal and S2 normal GI Palpation: soft, no hepatosplenomegaly, not firm, no guarding, no masses, no pulsatile masses, not rigid, no splenomegaly and tender in the LLQ; not at McBurney's point and Velez's sign negative Auscultation: normal bowel sounds Back/Spine/Pelvis Back: no CVA tenderness Neuro General: patient alert, patient awake, patient oriented x3, gait normal and moves all extremities Course Vital Signs Vital signs: Vital Signs Temperature 36.6 C 07/07/23 13:20 Pulse 83 07/07/23 13:20 Respiratory Rate 16 07/07/23 13:20 Blood Pressure 158/76 H 07/07/23 13:20 Pulse Oximetry 100 07/07/23 13:20 Temperature 36.6 C 07/07/23 13:20 Temperature Source Tympanic 07/07/23 13:20 Pulse 83 07/07/23 13:20 Respiratory Rate 16 07/07/23 13:20 Respiratory Effort Normal 07/07/23 13:25 Blood Pressure 158/76 H 07/07/23 13:20 Blood Pressure Position Sitting 07/07/23 13:20 Pulse Oximetry 100 07/07/23 13:42 Pain Level 6 07/07/23 13:27 Lab/Test Results Lab/Test Results: Laboratory Tests Range/Units 07/07/23 07/07/23 13:41 13:55 WBC (4.4-10.8) 10^3/uL 6.89 RBC (3.93-5.22) 10^6/uL 5.17 Hgb (11.2-15.7) g/dL 15.3 Hct (36.0-46.0) % 45.8 MCV (80-95) fL 89 MCH (27.0-33.0) pg 29.6 MCHC (32.0-36.0) % 33.4 RDW (11.7-14.6) % 12.1 Plt Count (130-400) 10^3/uL 120 L MPV (8.0-11.0) fL 14.4 H Immature Gran % 0.1 Neutrophils % 56.4 Lymphocytes % 33.7 Monocytes % 7.8 Eosinophils % 1.7 Basophils % 0.3 Nucleated RBC % (0.0-0.3) % 0.0 Absolute Neutrophils (1.2-6.7) 10^3/uL 3.88 Absolute Lymphocytes (1.2-3.4) 10^3/uL 2.32 Absolute Monocytes (0.1-0.8) 10^3/uL 0.54 Absolute Eosinophils (0.0-0.7) 10^3/uL 0.12 Absolute Basophils (0.0-0.2) 10^3/uL 0.02 Urine Color (Yellow) Yellow Urine Clarity (Clear) Clear Urine pH (5-8) 6.5 Ur Specific Beauty (1.005-1.025) 1.015 Urine Protein (Neg-Trace) mg/dL Negative Urine Ketones (Negative) mg/dL Negative Urine Blood (Negative) Negative Urine Nitrite (Negative) Negative Urine Bilirubin (Negative) Negative Urine Urobilinogen (Up to 0.2) mg/dL 0.2 Ur Leukocyte Esterase (Negative) Trace H Urine RBC (0-2) HPF Negative Urine WBC (0-5) HPF 0-2 Ur Epithelial Cells (Negative) HPF Many Urine Crystals (Negative) HPF Negative Urine Bacteria (Negative) HPF Rare Urine Casts (Negative) LPF Negative Urine Mucus (Negative) Negative Ur Culture Indicated? No/Sq. Contamination Urine Glucose (Negative) mg/dL Negative POC- Test(urine) Negative Medical Decision Making Patient presenting to the emergency department for chief complaint of left lower quadrant abdominal pain x 1 month. Patient reports that 2 weeks ago she was seen at an urgent care who stated that this was a viral but due to lack of improvement and slight worsening patient is now presenting for reevaluation. Patient states chills but no fever, denies any nausea vomiting, does state some dark stools but no obvious bleeding, denies any vaginal or urinary symptoms. Patient does state history of ongoing subtle thrombocytopenia which she is waiting for hematology follow-up, otherwise no other significant contributing past medical history. Physical exam does show left lower quadrant tenderness to even mild palpation otherwise unremarkable exam. Will plan on checking labs and CT imaging given persistent nature over 1 month. Pending results will give acetaminophen and ketorolac along with liter of fluids. Reviewed patient's labs and there is slightly low platelet count of 120 otherwise no significant leukocytosis anemia or shift noted, CMP shows slightly elevated anion gap of 13.1 and creatinine of 1.1 otherwise nondiagnostic CMP, lipase within normal range, patient is not , urinalysis shows trace's leukocyte esterase but is contaminated specimen with significant amount of epithelial cells. No significant WBC count or other findings of infection. CT imaging reviewed and I also spoke with radiologist that shows Subtle circumferential thickening of the wall of the left side of the colon there was some recommendation of outpatient colonoscopy for further evaluation and thought of ulcerative colitis. Patient deferred rectal exam but given no anemia and otherwise stable labs with no gross bleeding or rectal hemorrhaging and stable vital signs I do feel that outpatient investigation further into this is appropriate. Patient did state improvement after use of Tylenol and ketorolac so we will encourage continued conservative management of discomfort along with clear liquid diet for the next 24 to 48 hours and then slowly advance as tolerated. After discussion of diagnosis and plan of care patient has no further needs, questions, or concerns and states clear understanding to return to the emergency department for any worsening symptoms. This documentation was generated using [employer] dictation system, please disregard any oddities of phrase or misspellings. Imaging Data Radiologic Study: Imaging: CT Scan Radiologist's impression: Exam(s) CT ABDOMEN PELVIS W EXAM: CT ABDOMEN PELVIS W CLINICAL HISTORY: LLQ pain. TECHNIQUE: Imaging Protocol: Axial computed tomography images with coronal and sagittal reformatted images were created and reviewed CONTRAST MATERIAL: Intravenous: Omnipaque-350 100cc Oral: None COMPARISON: CT CT ABDOMEN PELVIS W from 03/22/2020 FINDINGS: VISUALIZED LUNG BASES: No nodules nor pleural effusions evident. ABDOMEN: There is no ascites. LIVER: There are no focal hepatic lesions evident. No dilated intrahepatic ducts. GALLBLADDER/BILIARY: No obvious gallbladder pathology. CBD is not dilated. PANCREAS: No evidence of pancreatic mass nor dilatation of the pancreatic duct. SPLEEN: Spleen is not enlarged. No obvious intrasplenic lesions. Splenic and portal veins are patent. ADRENALS: There are no significant adrenal masses. KIDNEYS:No cysts evident. No solid renal masses. No calculi nor hydronephrosis.. ABDOMINAL AORTA: Abdominal aorta is not enlarged. LYMPH NODES:There is no retroperitoneal nor paraaortic adenopathy. ABDOMINAL WALL: No evidence of significant anterior abdominal wall nor inguinal hernia. GI: There is no evidence of bowel obstruction, free air, nor abscess. PELVIS: GI: No evidence of appendicitis.There is no evidence of diverticular disease in the colon. However, the descending-left colon appears collapsed in similar fashion to February 2020 with some mild circumferential wall thickening which is possibly exaggerated because of lack of oral contrast within the lumen. Nevertheless, can not exclude an element of colitis here. This does not extend all the way down to the rectum. LYMPH NODES: There is no intrapelvic nor inguinal adenopathy. REPRODUCTIVE: Uterus is anteverted and appears unremarkable. Ovaries unremarkable. Follicular cyst in the right ovary noted measuring 1 cm. There are no extraovarian adnexal masses. No free fluid in the pelvis. URINARY BLADDER: No calculi nor obvious masses evident OSSEOUS: No fractures and no significant osseous lesions. IMPRESSION: 1. Subtle circumferential thickening of the wall of the left side of the colon from the splenic flexure down to the upper sigmoid, unchanged from 03/22/2020. This may just be due to lack of enteric intraluminal contrast but correlation with any clinical findings of colitis recommended. Consider colonoscopy to rule out ulcerative colitis 2. No evidence of diverticular disease and no evidence of appendicitis. No bowel obstruction nor free air. No abscess. Discussed by phone with ER provider. Lab Data Lab results reviewed: Yes I reviewed the patient's lab results. Quality:SDOH Health Related Social Needs: No Data to Display PFSH All Active Problems (Updated 07/07/23 @ 15:33 by Willy Talbert NP) Abdominal pain (Acute) Migraine (Chronic) Palpitations (Acute) Bipolar 1 disorder (Acute) sees Psychiatrist at [facility] for meds Contraception (Acute) POPs Surgical History H/O wisdom tooth extraction Family History Mother Depression Thyroid disorder Maternal Grandmother Bipolar 1 disorder Social History Smoking/Tobacco Use Status: Never Smoking risk assessment performed?: Yes Alcohol Intake: current Alcohol Intake frequency: holidays/special occasions only Drug use: Never Substance use type: does not use Do you feel safe at home: Yes Do you feel safe in your relationship?: Yes Female Reproductive History Menstrual control method: pills History History 0 Para Hx # Term Pregnancies Multiple births Hx # Pregnancies Ectopic pregnancies AB induced Hx Number of Living Children AB spontaneous
[2023-07-07 14:13] LABS: ALT 30 U/L (14-59); AST 16 U/L (15-37); Albumin 4.7 g/dL (3.4-5.0); Alkaline Phosphatase 81 U/L (46-116); Anion Gap 13.1 mmol/L (3-11); BUN 10 mg/dL (7-18); Bilirubin, Total 0.8 mg/dL (0.2-1.0); CO2 23.9 mmol/L (21.0-32.0); CREATININE 1.1 mg/dL (0.55-1.02); Calcium 9.5 mg/dL (8.5-10.1); Chloride 104 mmol/L (98-107); Estimated GFR 71.07 (mL/min/1.73m2); Glucose 93 mg/dL (74-106); Lipase 16 U/L (16-77); Magnesium 1.9 mg/dL (1.8-2.4); Potassium 3.5 mmol/L (3.5-5.1); Sodium 141 mmol/L (136-145); Total Protein 8.2 g/dL (6.4-8.2)
[2023-07-07] MEDS: ACETAMINOPHEN 1,000 MG/100 ML BTL 400 MG IVPB (14:14)
[2023-07-07] MEDS: Ketorolac 15 MG/ML VIAL IVP (14:14)
[2023-07-07] MEDS: Omnipaque 350 MG/ML 100 ML BTL IJ (14:44)
--- NOTE | 2023-07-07 15:31 | NUR.NOTE ---
Referral faxed to [facility] for left sided abd pain, in 1 week. Nursing Note:
--- NOTE | 2023-07-07 15:33 | DI.VRAD_ITS ---
PROCEDURE INFORMATION: Exam: CT Abdomen And Pelvis With Contrast Exam date and time: 07/07/2023 2:33 PM Age: 27 years old Clinical indication: Abdominal pain TECHNIQUE: Imaging protocol: Computed tomography of the abdomen and pelvis with contrast. COMPARISON: CT ABDOMEN PELVIS W 22/03/2020 16:03 FINDINGS: Liver: Normal. No mass. Gallbladder and bile ducts: Normal. No calcified stones. No ductal dilation. Pancreas: Normal. No ductal dilation. Spleen: Normal. No splenomegaly. Adrenal glands: Normal. No mass. Kidneys and ureters: Normal. No hydronephrosis. Stomach and bowel: Scattered diverticuli without CT evidence of diverticulitis. No obstruction. No mucosal thickening. Appendix: No evidence of appendicitis. Intraperitoneal space: Unremarkable. No free air. No significant fluid collection. Vasculature: Unremarkable. No abdominal aortic aneurysm. Lymph nodes: Scattered mesenteric lymph nodes similar to prior study without significant change in size or number. Urinary bladder: Unremarkable as visualized. Reproductive: Unremarkable as visualized. Bones/joints: Unremarkable. No acute fracture. Soft tissues: Umbilical hernia. IMPRESSION: 1. No acute findings. 2. Additional findings as discussed above. Dictated and Authenticated by: Adrienne Mcdaniel MD. Ordering:ROB Aguilera MD
== END 2023-07-07 16:08 | disposition home or self-care (01) ==
PROVIDERS: Emergency Provider Nurse Practitioner Family; PCP Family Medicine
DX: R10.32 Left lower quadrant pain (principal); R11.2 Nausea with vomiting, unspecified; R19.7 Diarrhea, unspecified
CPT/HCPCS: 36415; 80053; 81025; 83690; 99285; 74177; 81003; 81015; 83735; 85025; 99284; J0131; J1885; J3490

== ENCOUNTER 2023-07-11 14:07 | Emergency (ER) | payer BC, SELFPAY ==
[2023-07-11 14:09] VITALS: BP 141/80; PULSE 75; RESP 18; TEMP 36.6; O2SAT 100
--- NOTE | 2023-07-11 14:15 | DI.CT_ITS ---
Exam(s) CT RENAL COLIC WO EXAM: CT RENAL COLIC WO CLINICAL HISTORY: Flank pain, hematuria. TECHNIQUE: Imaging Protocol: Axial computed tomography images with coronal and sagittal reformatted images were created and reviewed. CONTRAST MATERIAL: Noncontrast COMPARISON: CT CT ABDOMEN PELVIS W from 07/07/2023 FINDINGS: ABDOMEN: Lung Bases: Normal where visualized. Liver: Normal attenuation. No measurable mass. Gallbladder and biliary tract: No radiodense calculus or dilation. Pancreas: Normal density, no calcifications or inflammatory process. Spleen: Normal. Kidneys: Normal size, contour and axis. No radiodense stones or obstructive uropathy. No masses seen. Adrenal glands: No masses seen. Abdominal Aorta: Abdominal portion non-dilated. Soft tissues: Unremarkable. PELVIS: Bladder: Symmetric distention, no gross wall thickening. No evidence of stones.No visible mass. Bowel: No obstruction or bowel wall thickening. Appendix normal. Normal quantity of stool. Reproductive: Unremarkable. Peritoneal cavity: No ascites, collection or mesenteric inflammatory response. Bones: Unremarkable for age.. IMPRESSION: Unremarkable noncontrast CT scan of the abdomen and pelvis. RADIATION DOSE DELIVERED: Total DLP DATA REPOSITORY: All CT scans at this facility are submitted to the National Radiology Data Registry (NRDR) Dose Index Registry (DIR) with the [employer] (ACR). RADIATION OPTIMIZATION: All CT scans at this facility use at least one of these dose optimization te chniques: automated exposure control; mA and/or kV adjustment per patient size (includes targeted exa ms where dose is matched to clinical indication); or iterative reconstruction.
--- NOTE | 2023-07-11 14:27 | ED.GENADUL_ITS ---
Discharge Plan Disposition Patient Disposition: Home Condition: Stable Discharge Details Clinical Impression: Abdominal pain Primary Care Provider: Rosendo Keith ED Provider: Jie Rose Home Meds and New Rx's Prescriptions: New dicyclomine 20 mg tablet 20 mg PO TID PRN (Reason: stomach upset) Qty: 14 0RF Rx Instructions: Take 1 tablet up to 3 times daily as needed for stomach cramps or stomach upset No Action norethindrone (contraceptive) 0.35 mg tablet 0.35 mg PO DAILY Qty: 84 4RF Discharge Instructions Instructions: Abdominal Pain (ED) Additional Instructions: No significant change from previous workup. No UTI, no evidence of appendicitis, or blood in your urine. Please take the Dicyclomine up to 3 times daily as needed for stomach cramping. Follow up with primary care provider in 3-5 days. Return to ED sooner if any worsening or concerns. Please take Tylenol or Ibuprofen with food every 4-6 hours as needed for pain and swelling. Referrals: [facility] [Provider Group] - 3 days Rosendo Keith [Primary Care Provider] - 3 days HPI General Mode of arrival: ambulatory . Date/Time Provider Initiated Documentation: 07/11/23 14:09 . Limitations to Documentation: no limitations . Information obtained by: patient, RN notes reviewed and old records reviewed . HPI Narrative: 27-year-old female presents to the ER with a chief complaint of left lower quadrant abdominal pain which radiates into her bilateral flanks, hematuria and dark tarry stools. Patient was seen here in the ER and had a CT and workup 4 days ago. She reports that pain has gotten worse since then. She is complaining of nausea no vomiting. Associated symptoms also include bloating she reports small formed brown stools. She did take a gram of Tylenol around 12. No history of abdominal surgeries. Related Data Home Medications Medication Instructions Recorded Confirmed norethindrone (contraceptive) 0.35 0.35 mg PO DAILY #84 tabs 03/02/23 07/11/23 mg tablet dicyclomine 20 mg tablet 20 mg PO TID PRN stomach upset #14 07/11/23 tabs Previous Rx's Medication Instructions Recorded norethindrone (contraceptive) 0.35 0.35 mg PO DAILY #84 tabs 03/02/23 mg tablet dicyclomine 20 mg tablet 20 mg PO TID PRN stomach upset #14 07/11/23 tabs Allergies Allergy/AdvReac Type Severity Reaction Status Date / Time fremanezumab-vfrm AdvReac Skin Rash Verified 07/11/23 14:13 [From Ajovy Syringe] General Stated Complaint: Urinary ELFEGO: 3 Review of Systems All systems reviewed & are unremarkable except as noted in HPI and below Gastrointestinal Gastrointestinal: Reports abdominal pain Genitourinary Genitourinary: Reports as per HPI and Reports hematuria Exam Narrative Exam Narrative: Constitutional: Alert and oriented x3. Appears stated age. Normal body habitus. Head: Normocephalic, no trauma. Eyes: Pupils PERRL, Red reflex noted, EOM's intact. Eyelids symmetrical without lesions, discharge, or swelling. ENT: Bilateral TM's WNL, External ear normal to inspection, no mastoid TTP, swel ling, or erythema, Nasal turbinates WNL, no nasal discharge. Normal dentition, Posterior pharynx WNL, no exudate. Chest: RRR, Normal S1, S2, distal pulses intact. Resp: Lungs clear to auscultation bilaterally, no wheezes, rales, or rhonchi. Abdomen: Soft, non-distended, Normoactive bowel sounds all 4 quads. Tender with palpation left lower quadrant. Musculoskeletal: Normal gait, . Skin: No suspicious rashes or lesions. Capillary refill less than 2 sec. Neurologic: Cranial nerves II-XII intact. Alert and oriented x 3. Motor: No deficits noted. Hematologic/Lymphatic: No ecchymosis, no lymphadenopathy. Course Vital Signs Vital signs: Vital Signs Temperature 36.6 C 07/11/23 14:09 Pulse 75 07/11/23 14:09 Respiratory Rate 18 07/11/23 14:09 Blood Pressure 141/80 H 07/11/23 14:09 Pulse Oximetry 100 07/11/23 14:09 Temperature 36.6 C 07/11/23 14:09 Temperature Source Skin 07/11/23 14:09 Pulse 75 07/11/23 14:09 Respiratory Rate 18 07/11/23 14:09 Respiratory Effort Normal, Non-Labored 07/11/23 14:13 Blood Pressure 141/80 H 07/11/23 14:09 Blood Pressure Position Sitting 07/11/23 14:09 Pulse Oximetry 100 07/11/23 14:09 Oxygen Delivery Method Room Air 07/11/23 14:09 Oxygen Flow Rate 0 07/11/23 14:09 Pain Level 5 07/11/23 14:20 Lab/Test Results Lab/Test Results: POC- Test(urine) Negative Medical Decision Making 27-year-old female presents to the ER with a chief complaint of left lower quadrant abdominal pain which radiates into her bilateral flanks, hematuria and dark tarry stools. Patient was seen here in the ER and had a CT and workup 4 days ago. She reports that pain has gotten worse since then. She is complaining of nausea no vomiting. Associated symptoms also include bloating she reports small formed brown stools. She did take a gram of Tylenol around 12. No history of abdominal surgeries. Will repeat CBC CMP, urinalysis CT without contrast to rule out kidney stone. Other differential includes close colitis, bowel perforation, UTI or pyelonephritis. Ovarian cyst. Labs largely unremarkable however, trace leukocytes on UA, but with squamous contamination. On patient reevaluation she reports she feels somewhat better, discussed CT and lab results, she reports that she is having dizziness and is requesting something for dizziness. I did prescribe her an order for some meclizine and to go. Patient made hemodynamically stable alert and oriented throughout stay, she does have an appointment on Sunday which I encouraged her to keep. This text was generated using [employer]ledade[employer] system, please disregard any oddities of phrase or misspellings. Medical Records Medical records reviewed: Yes I reviewed the patient's medical records. Imaging Data Radiologic Study: Imaging: CT Scan Radiologist's impression: EXAM: CT RENAL COLIC WO CLINICAL HISTORY: Flank pain, hematuria. TECHNIQUE: Imaging Protocol: Axial computed tomography images with coronal and sagittal reformatted images were created and reviewed. CONTRAST MATERIAL: Noncontrast COMPARISON: CT CT ABDOMEN PELVIS W from 07/07/2023 FINDINGS: ABDOMEN: Lung Bases: Normal where visualized. Liver: Normal attenuation. No measurable mass. Gallbladder and biliary tract: No radiodense calculus or dilation. Pancreas: Normal density, no calcifications or inflammatory process. Spleen: Normal. Kidneys: Normal size, contour and axis. No radiodense stones or obstructive uropathy. No masses seen. Adrenal glands: No masses seen. Abdominal Aorta: Abdominal portion non-dilated. Soft tissues: Unremarkable. PELVIS: Bladder: Symmetric distention, no gross wall thickening. No evidence of stones.No visible mass. Bowel: No obstruction or bowel wall thickening. Appendix normal. Normal quantity of stool. Reproductive: Unremarkable. Peritoneal cavity: No ascites, collection or mesenteric inflammatory response. Bones: Unremarkable for age.. IMPRESSION: Unremarkable noncontrast CT scan of the abdomen and pelvis. Lab Data Lab results reviewed: Yes I reviewed the patient's lab results. Labs: Laboratory Tests Range/Units 07/11/23 07/11/23 14:21 14:33 WBC (4.4-10.8) 10^3/uL 8.33 RBC (3.93-5.22) 10^6/uL 4.78 Hgb (11.2-15.7) g/dL 14.1 Hct (36.0-46.0) % 42.8 MCV (80-95) fL 90 MCH (27.0-33.0) pg 29.5 MCHC (32.0-36.0) % 32.9 RDW (11.7-14.6) % 12.4 Plt Count (130-400) 10^3/uL 112 L MPV (8.0-11.0) fL Immature Gran % 0.2 Neutrophils % 62.7 Lymphocytes % 28.9 Monocytes % 6.4 Eosinophils % 1.6 Basophils % 0.2 Nucleated RBC % (0.0-0.3) % 0.0 Absolute Neutrophils (1.2-6.7) 10^3/uL 5.22 Absolute Lymphocytes (1.2-3.4) 10^3/uL 2.41 Absolute Monocytes (0.1-0.8) 10^3/uL 0.53 Absolute Eosinophils (0.0-0.7) 10^3/uL 0.13 Absolute Basophils (0.0-0.2) 10^3/uL 0.02 Sodium (136-145) mmol/L 142 Potassium (3.5-5.1) mmol/L 3.6 Chloride (98-107) mmol/L 105 Carbon Dioxide (21.0-32.0) mmol/L 25.2 Anion Gap (3-11) mmol/L 11.8 H BUN (7-18) mg/dL 11 Creatinine (0.55-1.02) mg/dL 1.1 H Est GFR (CKD-EPI 2020) (mL/min/1.73m2) 71.07 Glucose (74-106) mg/dL 91 Calcium (8.5-10.1) mg/dL 9.2 Total Bilirubin (0.2-1.0) mg/dL 0.5 AST (15-37) U/L 20 ALT (14-59) U/L 32 Alkaline Phosphatase (46-116) U/L 72 Total Protein (6.4-8.2) g/dL 7.7 Albumin (3.4-5.0) g/dL 4.4 Urine Color (Yellow) Yellow Urine Clarity (Clear) Clear Urine pH (5-8) 6.0 Ur Specific Frannie (1.005-1.025) 1.010 Urine Protein (Neg-Trace) mg/dL Negative Urine Ketones (Negative) mg/dL Negative Urine Blood (Negative) Negative Urine Nitrite (Negative) Negative Urine Bilirubin (Negative) Negative Urine Urobilinogen (Up to 0.2) mg/dL 0.2 Ur Leukocyte Esterase (Negative) Trace H Urine RBC (0-2) HPF Negative Urine WBC (0-5) HPF 0-2 Ur Epithelial Cells (Negative) HPF Many Urine Crystals (Negative) HPF Negative Urine Bacteria (Negative) HPF Few Urine Casts (Negative) LPF Negative Urine Mucus (Negative) Negative Urine Other (Negative) Negative Ur Culture Indicated? No/Sq. Contamination Urine Glucose (Negative) mg/dL Negative Quality:SDOH Health Related Social Needs: No Data to Display PFSH All Active Problems (Updated 07/11/23 @ 15:37 by Jie Rose NP) Abdominal pain (Acute) Migraine (Chronic) Palpitations (Acute) Bipolar 1 disorder (Acute) sees Psychiatrist at [facility] for meds Contraception (Acute) POPs Surgical History H/O wisdom tooth extraction Family History Mother Depression Thyroid disorder Maternal Grandmother Bipolar 1 disorder Social History Smoking/Tobacco Use Status: Never Smoking risk assessment performed?: Yes Alcohol Intake: current Alcohol Intake frequency: holidays/special occasions only Drug use: Never Substance use type: does not use Do you feel safe at home: Yes Do you feel safe in your relationship?: Yes Female Reproductive History Menstrual control method: pills History History 0 Para Hx # Term Pregnancies Multiple births Hx # Pregnancies Ectopic pregnancies AB induced Hx Number of Living Children AB spontaneous
[2023-07-11 14:33] LABS: Bilirubin Negative (Negative); Blood Negative (Negative); Clarity Clear (Clear); Glucose Negative (Negative); Ketones Negative (Negative); Leukocyte Esterase Trace (Negative); Nitrite Negative (Negative); Urobilinogen 0.2 mg/dL (Up to 0.2)
[2023-07-11] MEDS: Normal Saline 1,000 ML 1000 ML IV (14:38)
[2023-07-11] MEDS: Ondansetron 4 MG/2 ML VIAL IVP (14:39)
[2023-07-11 14:45] LABS: Bacteria Few HPF (Negative); C & S Indicated? No/Sq. Contamination; Casts Negative LPF (Negative); Crystals Negative HPF (Negative); Epithelial Cells Many HPF (Negative); Mucus Negative (Negative); Other Cells Negative (Negative); RBC Negative HPF (0-2); WBC 0-2 HPF (0-5)
[2023-07-11 15:08] LABS: Abs Immature Grans 0.02 10^3/uL (0.0-0.06); Absolute Basophil Count 0.02 10^3/uL (0.0-0.2); Absolute Eosinophil Count 0.13 10^3/uL (0.0-0.7); Absolute Lymphocyte Count 2.41 10^3/uL (1.2-3.4); Absolute Monocyte Count 0.53 10^3/uL (0.1-0.8); Absolute Neutrophil Count 5.22 10^3/uL (1.2-6.7); Basophils % 0.2; Eosinophils % 1.6; HCT 42.8 % (36.0-46.0); HGB 14.1 g/dL (11.2-15.7); Immature Grans % 0.2; Lymphocytes % 28.9; MCH 29.5 pg (27.0-33.0); MCHC 32.9 % (32.0-36.0); MCV 90 fL (80-95); Monocytes % 6.4; Neutrophils % 62.7; Platelet Count 112 10^3/uL (130-400); RBC 4.78 10^6/uL (3.93-5.22); RDW 12.4 % (11.7-14.6); RDW-SD 40.4 fL; WBC 8.33 10^3/uL (4.4-10.8)
[2023-07-11] MEDS: Ketorolac 15 MG/ML VIAL IVP (15:13)
[2023-07-11 15:24] LABS: ALT 32 U/L (14-59); AST 20 U/L (15-37); Albumin 4.4 g/dL (3.4-5.0); Alkaline Phosphatase 72 U/L (46-116); Anion Gap 11.8 mmol/L (3-11); BUN 11 mg/dL (7-18); Bilirubin, Total 0.5 mg/dL (0.2-1.0); CO2 25.2 mmol/L (21.0-32.0); CREATININE 1.1 mg/dL (0.55-1.02); Calcium 9.2 mg/dL (8.5-10.1); Chloride 105 mmol/L (98-107); Estimated GFR 71.07 (mL/min/1.73m2); Glucose 91 mg/dL (74-106); Potassium 3.6 mmol/L (3.5-5.1); Sodium 142 mmol/L (136-145); Total Protein 7.7 g/dL (6.4-8.2)
[2023-07-11] MEDS: Meclizine 25 MG TAB PO ×2 (16:11→16:12)
[2023-07-11 16:21] VITALS: BP 102/72; PULSE 80; RESP 16; TEMP 36.8; O2SAT 98
== END 2023-07-11 16:22 | disposition home or self-care (01) ==
PROVIDERS: Emergency Provider Registered Nurse Emergency; PCP Family Medicine
DX: R10.32 Left lower quadrant pain (principal); R11.0 Nausea
CPT/HCPCS: 80053; 96361; 96374; 96375; 99284; 74176; 81003; 81015; 85025; J1885; J2405

== ENCOUNTER 2023-08-10 15:44 | Outpatient (REF) | payer BC, SELFPAY ==
[2023-08-12 20:38] LABS: Campylobacter PCR Negative (Negative); Salmonella PCR Negative (Negative); Shiga Toxin PCR Negative (Negative); Shigella/Enteroinvasive Ecoli Negative (Negative)
[2023-08-15 14:52] LABS: Calprotectin <50.0 mcg/g
== END 2023-08-10 15:45 | disposition home or self-care (01) ==
LOC: LBN 15:44
PROVIDERS: PCP Family Medicine; Visit Provider Physician Assistant
DX: R19.7 Diarrhea, unspecified (principal)
CPT/HCPCS: 87329; 87505; 83993

== ENCOUNTER 2023-08-10 17:41 | Outpatient (CLI) | payer BC, SELFPAY ==
[2023-08-14 15:01] LABS: Tissue Transglutaminase Ab IgA <1.2 U/mL (<4.0); Tissue Transglutaminase Ab IgG 1.7 U/mL
== END 2023-08-10 17:42 | disposition home or self-care (01) ==
LOC: LBO 17:41
PROVIDERS: PCP Family Medicine; Visit Provider Physician Assistant
DX: R19.7 Diarrhea, unspecified (principal)
CPT/HCPCS: 36415; 83516

== ENCOUNTER 2023-12-13 20:09 | Outpatient (REF) | payer OTHER, SELFPAY ==
[2023-12-13 19:57] LABS: FREE T4 1.11 ng/dL (0.76-1.46); TSH 1.22 uIU/Ml (0.36-3.74)
== END 2023-12-13 20:10 | disposition home or self-care (01) ==
LOC: NCHCN 20:09
PROVIDERS: PCP Physician Assistant; Visit Provider Physician Assistant
DX: G56.02 Carpal tunnel syndrome, left upper limb (principal)
CPT/HCPCS: 84439; 84443

== ENCOUNTER 2024-09-09 10:39 | Outpatient (CLI) | payer OTHER, SELFPAY ==
[2024-09-09 10:46] LABS: HCT 46.7 % (36.0-46.0); MCH 30.9 pg (27.0-33.0); MCHC 34.3 % (32.0-36.0); MCV 90 fL (80-95); RBC 5.18 10^6/uL (3.93-5.22); RDW 12.4 % (11.7-14.6); WBC 5.14 10^3/uL (4.4-10.8)
[2024-09-09 11:09] LABS: Platelet Count 97 10^3/uL (130-400)
[2024-09-09 12:14] LABS: Iron 99 ug/dL (50-170); Total Iron Binding Capacity 382 ug/dL (250-450); Transferrin Sat 26 % (15-50)
[2024-09-09 12:38] LABS: TSH (W/Ref FT4) 1.67 uIU/mL (0.36-3.74); Vitamin D 25 Total 31 ng/mL (30-100)
[2024-09-10 09:48] LABS: Rubella IgG Ab (UVM) Positive (See Note)
== END 2024-09-09 10:40 | disposition home or self-care (01) ==
LOC: LBO 10:39
PROVIDERS: PCP Physician Assistant; Visit Provider Obstetrics & Gynecology
DX: R53.83 Other fatigue (principal); L65.9 Nonscarring hair loss, unspecified; L60.3 Nail dystrophy; Z31.69 Encounter for other general counseling and advice on procreation; Z11.3 Encounter for screening for infections with a predominantly sexual mode of transmission; Z3A.28 28 weeks gestation of pregnancy; O26.899 Other specified pregnancy related conditions, unspecified trimester; Z67.91 Unspecified blood type, Rh negative; N93.9 Abnormal uterine and vaginal bleeding, unspecified
CPT/HCPCS: 36415; 82306; 85027; 86850; 86900; 86901; 83540; 83550; 84443; 86762

== ENCOUNTER 2024-09-09 18:38 | Outpatient (REF) | payer OTHER, SELFPAY ==
[2024-09-10 11:29] LABS: Chlamydia Result Negative (Negative); GC Result Negative (Negative)
== END 2024-09-09 18:39 | disposition home or self-care (01) ==
LOC: LBN 18:38
PROVIDERS: PCP Physician Assistant; Visit Provider Obstetrics & Gynecology
DX: R53.83 Other fatigue (principal); L65.9 Nonscarring hair loss, unspecified; L60.3 Nail dystrophy; Z31.69 Encounter for other general counseling and advice on procreation; Z11.3 Encounter for screening for infections with a predominantly sexual mode of transmission
CPT/HCPCS: 87491; 87591

== ENCOUNTER 2024-09-27 16:08 | Emergency (ER) | payer OTHER, SELFPAY ==
[2024-09-27] VITALS (28 sets, daily range): BP systolic 119–135; BP diastolic 72–88; PULSE 82–108; RESP 13–30; TEMP 36.7–37.2; O2SAT 98–100
[2024-09-27 17:20] LABS: HCT 36.6 % (36.0-46.0); HGB 12.3 g/dL (11.2-15.7); MCH 30.8 pg (27.0-33.0); MCHC 33.6 % (32.0-36.0); MCV 92 fL (80-95); RBC 3.99 10^6/uL (3.93-5.22); RDW 14.7 % (11.7-14.6)
[2024-09-27 17:31] LABS: PTT Activated 22.7 sec (20.6-30.2); Prothrombin Time 9.9 sec (9.1-11.1)
[2024-09-27 17:37] LABS: ALT 38 U/L (14-59); AST 26 U/L (15-37); Albumin 3.7 g/dL (3.4-5.0); Alkaline Phosphatase 78 U/L (46-116); Anion Gap 7.8 mmol/L (3-11); BUN 9 mg/dL (7-18); Bilirubin, Total 0.8 mg/dL (0.2-1.0); CO2 29.2 mmol/L (21.0-32.0); CREATININE 0.9 mg/dL (0.55-1.02); Calcium 8.9 mg/dL (8.5-10.1); Chloride 106 mmol/L (98-107); Estimated GFR 89.86 (mL/min/1.73m2); Glucose 101 mg/dL (74-106); Potassium 3.9 mmol/L (3.5-5.1); Sodium 143 mmol/L (136-145)
--- NOTE | 2024-09-27 17:45 | DI.CT_ITS ---
Exam(s) CT HEAD WO EXAM: CT HEAD WO CLINICAL HISTORY: thrombocytopenia, fu. TECHNIQUE: Imaging Protocol: Axial computed tomography images with coronal and sagittal reformatted images were created and reviewed COMPARISON: No exams were available for comparison FINDINGS: Ventricles and Extra axial spaces: Normal in size and morphology for the patient's age. Hemorrhage: None. Cerebral parenchyma: Normal. Midline shift: None. Brainstem/Cerebellum: Normal. Calvarium: Normal. Visualized Paranasal sinuses/Mastoids: Clear. Soft Tissues: Unremarkable. IMPRESSION: No acute intracranial process. RADIATION DOSE DELIVERED: 925.8mGy.cm Total DLP DATA REPOSITORY: All CT scans at this facility are submitted to the National Radiology Data Registry (NRDR) Dose Index Registry (DIR) with the [employer] (ACR). RADIATION OPTIMIZATION: All CT scans at this facility use at least one of these dose optimization te chniques: automated exposure control; mA and/or kV adjustment per patient size (includes targeted exa ms where dose is matched to clinical indication); or iterative reconstruction.
[2024-09-27 17:46] LABS: Absolute Monocyte Count 0.23 10^3/uL (0.1-0.8); Absolute Neutrophil Count 2.68 10^3/uL (1.2-6.7); Atypical Lymphocytes % 30 %
[2024-09-27 17:49] LABS: Diff Comment Manual Differential; Platelet Count 1 10^3/uL (130-400); RBC Morphology Normal
[2024-09-27 17:50] LABS: Absolute Lymphocyte Count 2.79 10^3/uL (1.2-3.4)
[2024-09-27] MEDS: Dexamethasone 10 MG/ML VIAL 40 MG IVP (18:48)
[2024-09-27] MEDS: Normal Saline 50 ML 400 ML (18:48)
--- NOTE | 2024-09-27 19:49 | W.ED.GENAD ---
Discharge Plan Disposition Patient Disposition: Transfer-Acute Inpatient Care Condition: Critical Discharge Details Clinical Impression: Thrombocytopenia Primary Care Provider: Isauro Price ED Provider: Radha Dubose Home Meds and New Rx's Prescriptions: No Action Vraylar 1.5 mg capsule 1.5 mg PO DAILY Qulipta 30 mg tablet 30 mg PO DAILY trazodone 100 mg tablet 100 mg PO QHS PRN norethindrone (contraceptive) 0.35 mg tablet 0.35 mg PO DAILY Qty: 84 4RF HPI General Date/Time Provider Initiated Documentation: 09/27/24 16:19. HPI Narrative: 28-year-old female with bipolar disorder presents 3 weeks after starting Vraylar with petechiae and bruising diffusely. Reports episodes of nosebleeds, leg swelling, and spreading rash. No difficulty swallowing, headache, or blood in stool. Related Data Home Medications ?Medication ?Instructions ?Recorded ?Confirmed trazodone 100 mg tablet 100 mg PO QHS PRN 01/03/24 09/27/24 norethindrone (contraceptive) 0.35 0.35 mg PO DAILY #84 tabs 02/21/24 09/27/24 mg tablet atogepant 30 mg tablet (Qulipta) 30 mg PO DAILY 09/09/24 09/27/24 cariprazine 1.5 mg capsule 1.5 mg PO DAILY 09/09/24 09/27/24 (Vraylar) Previous Rx's ?Medication ?Instructions ?Recorded norethindrone (contraceptive) 0.35 0.35 mg PO DAILY #84 tabs 02/21/24 mg tablet Allergies Allergy/AdvReac Type Severity Reaction Status Date / Time fremanezumab-vfrm (From AdvReac Skin Rash Verified 09/27/24 16:14 Ajovy Syringe) General Stated Complaint: RashLesion ELFEGO: 3 Exam Narrative Exam Narrative: General Appearance: Alert, oriented, no acute distress. Vital signs: Hemodynamically stable, mild tachycardia at 101. HEENT: Oropharyngeal petechiae, no epistaxis. Pupils equal, round, reactive to light and accommodation. Respiratory: Within normal limits. Cardiovascular: Hemodynamically stable, mild tachycardia at 101. Gastrointestinal: Nontender abdomen, petechiae around umbilicus. Extremities: Diffuse petechial rash, worse on lower extremities. Skin: Diffuse petechial rash, worse on thorax. Neurological: Normal. Course Vital Signs Vital signs: Vital Signs Temperature 36.7 C 09/27/24 16:09 Pulse 101 H 09/27/24 16:09 Respiratory Rate 15 09/27/24 16:09 Blood Pressure 119/72 09/27/24 16:09 Pulse Oximetry 99 09/27/24 16:09 Temperature 37.2 C 09/27/24 19:15 Temperature Source Oral 09/27/24 19:15 Pulse 102 H 09/27/24 19:00 Pulse 100 H 09/27/24 19:00 Respiratory Rate 21 09/27/24 19:00 Blood Pressure 126/87 09/27/24 18:28 Blood Pressure Mean 100 09/27/24 18:28 Blood Pressure Position Sitting 09/27/24 16:09 Pulse Oximetry 100 09/27/24 19:00 Oxygen Delivery Method Room Air 09/27/24 18:28 Oxygen Flow Rate 0 09/27/24 18:28 Pain Level 0 09/27/24 18:28 Lab/Test Results Lab/Test Results: Laboratory Tests Range/Units 09/27/24 09/27/24 17:08 17:20 WBC (4.4-10.8) 10^3/uL 5.70 RBC (3.93-5.22) 10^6/uL 3.99 Hgb (11.2-15.7) g/dL 12.3 Hct (36.0-46.0) % 36.6 MCV (80-95) fL 92 MCH (27.0-33.0) pg 30.8 MCHC (32.0-36.0) % 33.6 RDW (11.7-14.6) % 14.7 H Plt Count (130-400) 10^3/uL 1 L* MPV (8.0-11.0) fL Immature Gran % % 0.0 Neutrophils % % 47.0 Lymphocytes % % 19.0 Atypical Lymphs % % 30 Monocytes % % 4.0 Eosinophils % % 0.0 Basophils % % 0.0 Nucleated RBC % (0.0-0.3) % 0.0 Absolute Neutrophils (1.2-6.7) 10^3/uL 2.68 Absolute Lymphocytes (1.2-3.4) 10^3/uL 2.79 Absolute Monocytes (0.1-0.8) 10^3/uL 0.23 Absolute Eosinophils (0.0-0.7) 10^3/uL 0.00 Absolute Basophils (0.0-0.2) 10^3/uL 0.00 RBC Morphology Normal PT (9.1-11.1) sec 9.9 INR (0.9-1.1) 1.0 APTT (20.6-30.2) sec 22.7 Sodium (136-145) mmol/L 143 Potassium (3.5-5.1) mmol/L 3.9 Chloride (98-107) mmol/L 106 Carbon Dioxide (21.0-32.0) mmol/L 29.2 Anion Gap (3-11) mmol/L 7.8 BUN (7-18) mg/dL 9 Creatinine (0.55-1.02) mg/dL 0.9 Est GFR (CKD-EPI 2020) (mL/min/1.73m2) 89.86 Glucose (74-106) mg/dL 101 Calcium (8.5-10.1) mg/dL 8.9 Total Bilirubin (0.2-1.0) mg/dL 0.8 AST (15-37) U/L 26 ALT (14-59) U/L 38 Alkaline Phosphatase (46-116) U/L 78 Total Protein (6.4-8.2) g/dL 7.0 Albumin (3.4-5.0) g/dL 3.7 ABO/Rh A Positive Antibody Screen NEGATIVE Medical Decision Making Platelet count 1000. Hemoglobin and hematocrit stable. CT head: no acute bleed or abnormality. Initial Assessment: 28-year-old female with history of bipolar disorder presents with thrombocytopenia, petechiae, and bruising throughout her body, approximately 3 weeks after starting Vraylar. Episodes of epistaxis, swelling in legs, spreading rash, denies difficulty swallowing, headache, or blood in stool. Alert and oriented, no acute distress, diffuse petechial rash, oropharyngeal petechiae, no obvious epistaxis, pupils equal, round, reactive to light and accommodation, nontender abdominal exam, petechia around umbilicus, mild tachycardia at 101, hemoglobin and hematocrit stable, platelet count 1000. Differential Diagnosis: - Idiopathic thrombocytopenia: Likely diagnosis, severe thrombocytopenia, possible drug reaction with Vraylar initiation 3 weeks ago. ED Course: - Consulted Dr. Randhawa, recommended 40 mg Decadron i.v., administered. - Platelets or IVIG not available. - Attempted to call [facility], also at capacity. Low clinical suspicion for Sumner-Cosme's or TEN - Coordinated transfer to [facility] by Katia, nurse practitioner for oncology. - Spoke with Sophia weeks, ED physician, agreeable to accept patient ED to ED. - Headache at approximately 615, ordered CT head, no acute bleed or abnormality, given i.v. Tylenol, headache improved. Final Assessment: Patient with severe thrombocytopenia likely due to idiopathic thrombocytopenia or drug reaction to Vraylar. Hemodynamically stable, headache improved after i.v. Tylenol, transfer to [facility] coordinated. Clinical Impression: - Idiopathic thrombocytopenia - Severe thrombocytopenia Disposition: - Transfer: Patient agreeable to transport to [facility]. MDM Components Evaluation: - Number of Differential Diagnoses or Management Options: Idiopathic thrombocytopenia, drug reaction. - Amount and Complexity of Data Reviewed: Consulted Dr. Randhawa, CT head, coordination with multiple hospitals, transfer arrangements. - Risk of Complication and Morbidity or Mortality: Severe thrombocytopenia, risk of bleeding, drug reaction. Quality:[facility] Health Related Social Needs: No Data to Display Critical Care Time Critical Care Time Attestation: 35 minutes of critical care time secondary to acute thrombocytopenia requiring diagnostic lab interpretation review multiple specialist interpretation and discussion, diagnostic imaging interpretation and review CT head telemetry monitoring and transfer to higher level of care [facility] All Active Problems (Updated 09/27/24 @ 21:26 by LALA Vázquez) Thrombocytopenia (Chronic) Migraine (Chronic) Palpitations (Acute) Bipolar 1 disorder (Acute) sees Psychiatrist at [facility] for meds Contraception (Acute) POPs Surgical History H/O wisdom tooth extraction Family History Mother Depression Thyroid disorder Maternal Grandmother Bipolar 1 disorder Social History Smoking/Tobacco Use Status: Never Smoking risk assessment performed?: Yes Alcohol Intake: current Alcohol Intake frequency: holidays/special occasions only Drug use: Never Substance use type: does not use Do you feel safe at home: Yes Do you feel safe in your relationship?: Yes Female Reproductive History Menstrual control method: pills (POP) History History 0 Para Hx # Term Pregnancies Multiple births Hx # Pregnancies Ectopic pregnancies AB induced Hx Number of Living Children AB spontaneous
[2024-09-29 11:16] LABS: Lyme Ab w Rflx to Lyme Confirm Negative (Negative)
[2024-09-30 23:58] LABS: Anaplasma phagocytophilum Negative (Negative); B. miyamotoi PCR Negative (Negative); Babesia divergens/MO-1 Negative (Negative); Babesia duncani Negative (Negative); Babesia microti Negative (Negative); Ehrlichia chaffeensis Negative (Negative); Ehrlichia ewingii/canis Negative (Negative); Ehrlichia muris eauclairensis Negative (Negative)
== END 2024-09-27 21:06 | disposition short-term general hospital (02) ==
PROVIDERS: Emergency Provider Physician Assistant; PCP Physician Assistant
DX: D69.6 Thrombocytopenia, unspecified (principal); F31.9 Bipolar disorder, unspecified
CPT/HCPCS: 36415; 80053; 81025; 86850; 86900; 86901; 87798; 96374; 99285; 70450; 85025; 85610; 85730; 86618; J1100

== ENCOUNTER 2024-10-08 08:55 | Outpatient (CLI) | payer OTHER, SELFPAY ==
[2024-10-08 09:20] LABS: Abs Immature Grans 0.01 10^3/uL (0.0-0.06); Absolute Basophil Count 0.01 10^3/uL (0.0-0.2); Absolute Eosinophil Count 0.02 10^3/uL (0.0-0.7); Absolute Lymphocyte Count 2.19 10^3/uL (1.2-3.4); Absolute Monocyte Count 0.59 10^3/uL (0.1-0.8); Absolute Neutrophil Count 2.23 10^3/uL (1.2-6.7); Basophils % 0.2 %; Eosinophils % 0.4 %; HCT 37.8 % (36.0-46.0); HGB 12.4 g/dL (11.2-15.7); Immature Grans % 0.2 %; Lymphocytes % 43.4 %; MCH 30.5 pg (27.0-33.0); MCHC 32.8 % (32.0-36.0); MCV 93 fL (80-95); Monocytes % 11.7 %; Neutrophils % 44.1 %; RBC 4.06 10^6/uL (3.93-5.22); RDW 13.6 % (11.7-14.6); RDW-SD 46.7 fL; WBC 5.05 10^3/uL (4.4-10.8)
[2024-10-08 09:43] LABS: Platelet Count 25 10^3/uL (130-400)
[2024-10-08 09:49] LABS: Diff Comment PLT Morph Reviewed; RBC Morphology Normal
== END 2024-10-08 08:56 | disposition home or self-care (01) ==
LOC: LBO 08:55
PROVIDERS: PCP Physician Assistant; Visit Provider Internal Medicine Hematology & Oncology
DX: D69.6 Thrombocytopenia, unspecified (principal)
CPT/HCPCS: 36415; 85025